=== PATIENT | female | born 1980 | race Two or more races ===

== ENCOUNTER 2025-02-15 20:49 | Emergency (ER) | payer MEDICAID ==
[~2025-02-15] VITALS: Ht 167.6 cm; Wt 72.6 kg
[2025-02-15 21:41] LABS: PREGNANCY TEST URINE QUAL NEGATIVE (NEGATIVE)
[2025-02-15 23:26] VITALS: BP 130/82; TEMP 98; O2SAT 99
== END 2025-02-15 23:39 | disposition home or self-care (01) ==
LOC: ER 21:09
DX: R09.89 Other specified symptoms and signs involving the circulatory and respiratory systems (principal); R11.10 Vomiting, unspecified; R49.0 Dysphonia; Z87.59 Personal history of other complications of pregnancy, childbirth and the puerperium
CPT/HCPCS: 70490-TC; 71045-TC; 84703-TC